=== PATIENT | female | born 1965 | race Caucasian/White ===

== ENCOUNTER 2023-05-17 08:40 | Outpatient (CLI) | payer OTHER, SELFPAY ==
[2023-05-17 15:29] LABS: Anion Gap 5 mmol/L (8-16); Blood Urea Nitrogen 14 mg/dL (7-17); Calcium 9.7 mg/dL (8.4-10.2); Carbon Dioxide 29 mmol/L (22-30); Chloride 100 mmol/L (98-107); Estimated Glomerular Filt Rate > 60; Glucose 89 mg/dL (65-110); Potassium 4.2 mmol/L (3.4-5.0); Sodium 134 mmol/L (137-145)
== END 2023-05-17 08:41 | disposition home or self-care (01) ==
PROVIDERS: Anesthesiology; PCP Family Medicine; Visit Provider Podiatrist Foot & Ankle Surgery
DX: Z01.818 Encounter for other preprocedural examination (principal); E11.9 Type 2 diabetes mellitus without complications
CPT/HCPCS: 36415; 80048

== ENCOUNTER 2023-05-18 03:29 | Day surgery (SDC) | payer OTHER, SELFPAY ==
[2023-05-14 12:32] VITALS: BMI 41.2
--- NOTE | 2023-05-14 12:42 | PC.NURSE ---
Report to the Outpatient Waiting Room, entrance under the green pavilion located off [facility], at time 8:00 on date 05/18/23. Planned Procedure Time: 10:00. Time changes happen often and if your time is changed the preop area will call you the afternoon before. - You and your visitor will be asked to self-screen and do not enter if you have any COVID symptoms. - A mask is optional within the hospital at this time. Patients may have clear liquids (water, carbonated beverages, clear teas, apple juice) until 3 hours prior to surgery (7:00) with a maximum of 20 ounces. - No food from midnight until time of surgery Take the following medications with a SIP of water the morning of surgery: NONE DO NOT STOP ANY OF YOUR OTHER PRESCRIPTION MEDICATIONS PRIOR TO SURGERY ?EXCEPT THE FOLLOWING Medications to discontinue per physician: N/A Date to take last dose: N/A Please no make-up, nail indonesian, hairspray, perfume, deodorant, or body powder the day of surgery. No jewelry (including any body piercings) or valuables the day of surgery, leave them at home. Please take a shower or bath the night before, or the morning of, surgery with an antibacterial soap. Wear comfortable, loose fitting clothing. - Jewelry must be removed prior to entering the operating room. Rings and piercings that are not removed may be cut off. - The hospital will not accept responsibility for valuables. - Please leave all valuables, including medications, at home the day of surgery. If you are going home after surgery, a licensed auto driver must drive you home. - NO public transportation without another adult if you receive anesthesia. - We recommend that an adult stay with you for 24 hours following discharge. - We also recommend that you do not drive, make important decision, drink alcoholic beverages, or take any drugs that were not prescribed by your health care provider for at least 24 hours after your discharge time. Follow any additional instructions given to you from your surgeon. If you or anyone in your household have experienced Covid symptoms in the past week, please notify your surgeon or the nurse liaison at the phone number below for possible testing. Telephone instructions given to PT - RENÉ MALIK and asked if any additional questions and then verbalized understanding. Patient advised to call surgeon office or pre surgery nurse liaison [phone] if any additional questions.
[2023-05-18] VITALS (9 sets, daily range): BP systolic 94–113; BP diastolic 52–68; PULSE 58–73; RESP 12–19; TEMP 36.1–36.8; O2SAT 95–100
--- NOTE | 2023-05-18 07:11 | WPDHPUPDATE1 ---
History and Physical Update Update Date/Time: 05/18/23 07:11 History and Physical has been reviewed, including an updated exam of the patient. There are NO changes in the patient's condition. Risks, benefits, and alternatives have been discussed and questions answered. Patient agrees to proceed with procedure.
[2023-05-18] MEDS: LACTATED RINGERS 1,000 ML 30 ML IV CONT ×2 (08:15→10:04)
--- NOTE | 2023-05-18 08:40 | WPDANESEPPF ---
Anes - Initial Pre Proc Eval Procedure: Operation Date: 05/18/23 10:00 Proposed Procedures p Achilles Tendon Lengthening Right Leg - Case Arenas JR, MD Date/Time: 05/18/23 08:40 Surgeon: Case Arenas JR, MD Pre Op Diagnosis: achilles tendonopathy right leg Patient Data Age: 57 Gender: F Height: 1.63 m Weight: 108.9 kg Allergies Allergy/AdvReac Type Severity Reaction Status Date / Time Penicillins Allergy Unknown Unknown Verified 05/14/23 12:31 Sulfa (Sulfonamide Allergy Hives Verified 05/14/23 12:31 Antibiotics) UNKNOWN BLOOD THINNER Allergy Mild Fever Uncoded 05/14/23 12:31 Home Medications Medication Instructions Recorded Confirmed Type dapagliflozin propanediol 10 mg 10 mg PO DAILY 05/14/23 05/14/23 History tablet (Farxiga) losartan 25 mg tablet 25 mg PO HS 05/14/23 05/14/23 History rosuvastatin 20 mg tablet 20 mg PO HS 05/14/23 05/14/23 History Patient hx anesthesia problems: none Family hx anesthesia problems: none Results Review: All pre-operative results and documents have been reviewed as part of the pre-operative evaluation. [facility] Past Medical History Medical History (Updated 05/18/23 @ 08:41 by Naveen Hays MD) HTN (hypertension) Hyperlipidemia Morbid obesity GOMEZ (obstructive sleep apnea) Surgical History Surgical History (Updated 05/18/23 @ 08:45 by Naveen Hays MD) History of cholecystectomy History of foot surgery Family History Family History Grandparent Family history of primary malignant neoplasm of liver, Onset Age: 83 Family history of heart disease in male family member before age 55, Onset Age: 48 Father Family history of heart disease in male family member before age 55 Family history of cardiovascular disease Social History Social History Smoking status: Never smoker Second hand tobacco smoke exposure: No Alcohol intake: current Alcohol use details: VERY RARE Substance use: never Substance use type: does not use Living arrangements: with family Spiritual care concerns: No Anes - Eval Final PreProcedure Day of Procedure 05/18/23 08:40 Patient weight: morbidly obese Heart: regular rate and rhythm Lungs: clear to auscultation Airway: Mallampati scale class II Neurological: alert and oriented Last oral intake: >/= 8 hours ASA classification: III Emergent: no Anesthetic plan: proceed Anesthesia type and monitoring: general LMA and standard monitoring Results Review: All pre-operative results and documents have been reviewed as part of the pre-operative evaluation. Informed Consent: The patient's anesthetic plan and its attendant risks and benefits were discussed with the patient/family/POA. Questions were solicited and answers provided to the satisfaction of the patient/family/POA.
[2023-05-18 08:57] LABS: Glucose Point of Care 119 mg/dl (65-105)
[2023-05-18] MEDS: ceFAZolin 2 GM/D5W 50 ML 2 GM/50 ML BAG IVPB (09:24)
[2023-05-18] MEDS: BUPivacaine HCL 0.5% 10 ML AMP INFILTRATE (09:31)
[2023-05-18] MEDS: LIDOCAINE HCL 2% LOCAL INJ 20 ML VIAL 10 ML INFILTRATE (09:31)
[2023-05-18] MEDS: fentaNYL CITRATE INJ (*CRX) 100 MCG/2 ML VIAL 25 MCG IV PUSH ×4 (10:16→10:29)
--- NOTE | 2023-05-18 10:18 | W.PM.PROC2 ---
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 A pneumatic thigh tourniquet was placed about the patient's thigh. Following general anesthesia I performed a local anesthetic nerve block with 20cc's of2% Lidocaine plain and 0.5% Marcaine plain along with a proximal along the posterior proximal leg including the common peroneal nerve 1cm posterior and 3cm distal to the neck of the fibula. The foot and distal leg were then scrubbed, prepped, and draped in the usual aseptic manner. An Esmarch bandage was then used to examine the patient's right foot and pneumatic thigh tourniquet was then inflated. Surgery began in the following manner. Attention was directed to the posterior aspect of affected leg where 3 1cm incisions were made 2cm apart starting 2cm above the insertion of the Achilles. A vertical incsion into the Achilles was performed and than a 90 degree turn of the blade was made in order to lengthen the Achilles tendon. Greater than 90 degrees of dorsiflexion of the ankle was noted post the triple hemisection.I flushed the wound site with copious amounts of sterile saline. Next, I closed the skin with 4-0 Prolene in simple interrupted suture fashion technique. Upon completion of the procedure, the incision was dressed with Adaptic, 4 x 4's, Kerlix, and Sloan Wrap. The pneumatic thigh tourniquet was then deflated and a prompt hyperemic response noted to all digits of the foot. A posterior splint was then applied. The patient did very well with the procedure and the anesthesia. Next, the patient was transferred to the recovery room with vital signs stable and vascular status intact to all toes of the foot. Following a period of postoperative monitoring, the patient will be discharged home on the following written and oral postoperative instructions: 1. Keep the dressing clean, dry, and intact. Use a cast protector bag with showers. 2. The patient to be strictly nonweightbearing with a knee scooter. 3. The patient should ice and elevate the right foot when at rest. 4. The patient to contact Dr. Arenas for all postop care and if any problems arise. 5. Prescriptions were written for Percocet 5/325 dispensed 40 to be taken 1 p.o. q.4 to 6 hours as needed for severe pain. Implants None Estimated Blood Loss 1 Drains No Packing No Pathology None sent Complications No immediate complications Condition Stable Disposition Same day
[2023-05-18] MEDS: oxyCODONE HCL (*CRX) 5 MG TAB IR PO (10:52)
== END 2023-05-18 12:00 | disposition home or self-care (01) ==
PROVIDERS: PCP Family Medicine; Visit Provider Podiatrist Foot & Ankle Surgery
PROC: (CPT 27650; principal; 2023-05-18 10:00)
DX: M76.61 Achilles tendinitis, right leg (principal); I10 Essential (primary) hypertension; E78.5 Hyperlipidemia, unspecified; E11.9 Type 2 diabetes mellitus without complications; G47.33 Obstructive sleep apnea (adult) (pediatric); E66.01 Morbid (severe) obesity due to excess calories; Z68.41 Body mass index [BMI] 40.0-44.9, adult; Z98.890 Other specified postprocedural states; Z90.49 Acquired absence of other specified parts of digestive tract; Z82.49 Family history of ischemic heart disease and other diseases of the circulatory system; Z80.0 Family history of malignant neoplasm of digestive organs
CPT/HCPCS: 27685; 36415; 80048; 82948; A9270; J0690; J1100; J2405; J2704; J3010; J7120

== ENCOUNTER 2024-06-02 06:59 | Outpatient (CLI) | payer OTHER, SELFPAY ==
--- NOTE | ~2024-06-02 | MR_ITS ---
MRI of the left shoulder Technique: Axial proton-density fat-sat images, coronal proton density fat-sat and T2 fat-sat images, and sagittal T1-weighted and T2 fat-sat images were acquired. Clinical History: Pain Findings: There is mild AC joint degenerative change. Coracoclavicular, coracoacromial, and coracohum eral ligaments appear intact. There is complete, full-thickness tear of the supraspinatus tendon. There is a full-thickness tearing involving probably the anterior portion of the infraspinatus tendon. Fluid-filled gap at the rotator cuff region measures approximately 3.9 x 2.8 cm in extent. Subscapularis tendon is intact. Tendon of long head of the biceps is probably ruptured, with retraction into the bicipital groove. Evidence of prior rotator cuff repair surgery the humeral head noted. Probable superior labral tear at the biceps labral anchor region.. Inferior glenohumeral ligament is intact. There are small glenohumeral joint effusion. No muscle atro phy or edema. No degenerative change of the glenohumeral joint. Impression: Complete, full-thickness tear of the supraspinatus tendon with additional full-thickness tearing of t he anterior portion of the infraspinatus tendon, as detailed above. Evidence of prior rotator cuff re pair surgery. Complete rupture of the proximal long head biceps tendon, which is retracted to the bicipital groove. Possible superior labral tear at the biceps labral anchor region. Reviewed, dictated and finalized at [place] [facility]. Impression: Complete, full-thickness tear of the supraspinatus tendon with additional full- thickness tearing of the anterior portion of the infraspinatus tendon, as detai led above. Evidence of prior rotator cuff repair surgery. Complete rupture of the proximal long head biceps tendon, which is retracted to the bicipital groove. Possible superior labral tear at the biceps labral anchor region.
== END 2024-06-02 07:00 | disposition home or self-care (01) ==
PROVIDERS: PCP Nurse Practitioner; Visit Provider Orthopaedic Surgery
DX: S46.812A Strain of other muscles, fascia and tendons at shoulder and upper arm level, left arm, initial encounter (principal); S46.112A Strain of muscle, fascia and tendon of long head of biceps, left arm, initial encounter; X58.XXXA Exposure to other specified factors, initial encounter
CPT/HCPCS: 73221

== ENCOUNTER 2024-06-17 14:30 | Outpatient (CLI) | payer OTHER, SELFPAY ==
--- NOTE | ~2024-06-17 | MM_ITS ---
EXAMINATION: MM screening jaspreet BI w mitzi HISTORY: Screening TECHNIQUE: Craniocaudal and mediolateral oblique 3-D tomosynthesis images were obtained and synthetic 2-D images were generated. CAD analysis was submitted and interpreted. COMPARISON: No prior mammogram is available for comparison at this institution. BREAST PARENCHYMAL COMPOSITION: Not dense: There are scattered areas of fibroglandular density. FINDINGS: There is no evidence of suspicious mass, calcification, or architectural distortion to sugg est malignancy in either breast. There has been no suspicious interval change. IMPRESSION: 1. No mammographic evidence of malignancy. 2. Recommend routine screening mammography in one year. BI-RADS Category 1: Negative Reviewed, dictated and finalized at location A.
== END 2024-06-17 14:31 | disposition home or self-care (01) ==
LOC: MICIMG 14:30
PROVIDERS: PCP Nurse Practitioner; Visit Provider Nurse Practitioner
DX: Z12.31 Encounter for screening mammogram for malignant neoplasm of breast (principal)
CPT/HCPCS: 77063; 77067

== ENCOUNTER 2024-09-23 09:12 | Outpatient (CLI) | payer OTHER, SELFPAY ==
--- NOTE | ~2024-09-23 | XR_ITS ---
EXAM/ PROCEDURE: XR shoulder RT min 2V - 09/23/2024 9:30 CDT HISTORY: 58 years old Female with Pain in right shoulder COMPARISON: None available TECHNIQUE: Four view(s) FINDINGS/ IMPRESSION: There are no fractures or dislocations.Joint space narrowing, subchondral sclerosis, subchondral cyst formation and osteophyte formation, compatible with mild osteoarthritis. Reviewed, dictated and finalized at location A.
== END 2024-09-23 09:13 | disposition home or self-care (01) ==
PROVIDERS: PCP Nurse Practitioner; Visit Provider Orthopaedic Surgery Hand Surgery
DX: M25.511 Pain in right shoulder (principal)
CPT/HCPCS: 73030

== ENCOUNTER 2024-10-30 06:57 | Outpatient (CLI) | payer OTHER, SELFPAY ==
--- NOTE | ~2024-10-30 | MR_ITS ---
EXAMINATION: MR shoulder RT wo con DATE: 10/30/2024 07:40 INDICATION: Right shoulder pain TECHNIQUE: Magnetic resonance imaging (MRI) of the right shoulder was performed without intravenous c ontrast. Sequences included axial PD-weighted FS FSE, coronal oblique PD-weighted FS FSE, coronal obl ique T2-weighted FS FSE, sagittal PD-weighted FS FSE, and sagittal T1-weighted SE. COMPARISON: None. FINDINGS: Coracoacromial arch: The acromion undersurface is flat in morphology (type I). There is a moderate-sized subacromial spur. There is small amount of heterotopic ossification near the acromial insertion of the otherwise natalie l coracoacromial ligament. Moderate acromioclavicular osteoarthritis. Rotator cuff: The teres minor tendon is normal. There is a full-thickness tear extending along the superior and por tions of the middle facet footplates of the supraspinatus and infraspinatus tendons. The supraspinatu s tear margin is retracted up to 3.5 cm medially to slightly medial to the level of the apex of the h umeral head. There is retraction of the supraspinatus and infraspinatus muscle bellies with superimpo sed mild to moderate fatty atrophy suggesting this is relatively chronic. There is increased fluid si gnal along the cephalad half of the lesser tuberosity footplate of the subscapularis tendon which angel ears attenuated and caudally retracted but without a clearly defined tear margin. There is also a tea r of the cephalad portion of the transverse humeral ligament with approximately 6 mm gap between the intact portion of the humeral ligament and the more cephalad impacted humeral attachment of the intac t biceps santhosh sling. The tendon remains tethered laterally by the transverse humeral ligament which appears intact cephalad and caudally below the a central tear defect measuring 6 mm craniocaudally. There is mild fatty atrophy of the supraspinatus muscle belly. Biceps tendon, glenoid labrum and glenohumeral cartilage: Complete tear of the long head biceps tendon likely occurring at or near its glenoid attachment and w ith distal retraction below the level of the intertubercular groove. Glenoid labrum is normal. Thyroi d cartilage is normal. There is small region of partial-thickness cartilage loss involving greater th an 50% the cartilage thickness but without degenerative subchondral changes along the anteroinferior aspect of the humeral head. Fluid: Small glenohumeral joint effusion with proportional extension of a small amount of fluid along the lo ng head biceps tendon sheath. There is extension of a small amount of fluid through the full-thicknes s rotator cuff tear into the subacromial/subdeltoid bursa. No loose osteochondral bodies. Bones: There is cephalad subluxation of the humeral head with respect to the glenoid with narrowing of the s ubacromial space secondary to the rotator cuff tear. No fracture, reactive edema or pathologic marrow replacing process. IMPRESSION: 1. Full-thickness tear along the footplates of the supraspinatus and infraspinatus tendons as well as of the cephalad half the lesser tuberosity footplate of the subscapularis tendon. There is mild to m oderate associated fatty atrophy of the associated muscle bellies suggesting this is chronic. 2. Complete tear and distal retraction of the long head biceps tendon. 2. Mild glenohumeral and acromioclavicular osteoarthritis. Reviewed, dictated and finalized at location A. IMPRESSION: 1. Full-thickness tear along the footplates of the supraspinatus and infraspina tus tendons as well as of the cephalad half the lesser tuberosity footplate of the subscapularis tendon. There is mild to moderate associated fatty atrophy of the associated muscle bellies suggesting this is chronic. 2. Complete tear and distal retraction of the long head biceps tendon. 2. Mild glenohumeral and acromioclavicular osteoarthritis.
== END 2024-10-30 06:58 | disposition home or self-care (01) ==
LOC: MICIMG 06:58
PROVIDERS: PCP Nurse Practitioner; Visit Provider Orthopaedic Surgery Hand Surgery
DX: S46.821A Laceration of other muscles, fascia and tendons at shoulder and upper arm level, right arm, initial encounter (principal); M62.58 Muscle wasting and atrophy, not elsewhere classified, other site; S46.112A Strain of muscle, fascia and tendon of long head of biceps, left arm, initial encounter; X58.XXXA Exposure to other specified factors, initial encounter; M19.012 Primary osteoarthritis, left shoulder
CPT/HCPCS: 73221